=== PATIENT | male | born 1955 | race Caucasian/White ===

== ENCOUNTER 2017-04-13 11:11 | Day surgery (SDC) | payer OTHER ==
[~2017-04-13] VITALS: Ht 176.5 cm; Wt 91.7 kg
[~2017-04-13 11:11] MED LIST: ADV10050 INH; ALBU8.5H3; AMLO-147 PO; DOCU-144; NORCO PO; PRED20TA PO
[2017-04-13] MEDS ORDERED: IPRA4AER INHALATION (11:37)
[2017-04-13 11:48] VITALS: Ht 176.5 cm; Wt 91.7 kg
[2017-04-13 13:07] VITALS: BP 114/70; PULSE 72; RESP 18
[2017-04-13 14:50] VITALS: BP 116/64; PULSE 66; RESP 12
[2017-04-13] MEDS ORDERED: LIDOCAINE 2% (SDV) 5 ML INJ ONE (18:03)
[2017-04-13] MEDS ORDERED: PROPOFOL 40 ML ONE (18:03)
--- NOTE | 2017-04-15 09:46 | GILP ---
DATE OF PROCEDURE: 04/13/2017 PROCEDURE PERFORMED: Esophagogastroduodenoscopy with biopsies. INDICATION FOR PROCEDURE: This is a patient with history of cirrhosis of the liver; here for surveillance for esophageal varices. ANESTHESIA: Monitored anesthesia care by Anesthesiologist. TECHNIQUE: After informed consent, with the patient/relatives understanding the procedure, its indications, potential risks and complications, including but not limited to: allergic reaction, bleeding, perforation or infection, and after all pertinent questions were answered to the patients satisfaction, the patient/relatives signed witnessed informed consent. Following this, premedication was administered slowly IV push under careful cardiovascular and respiratory monitoring with pulse oximetry, automatic blood pressure and panel monitor. Once the sedative effect was achieved the patient was place in the left lateral decubitus, the panendoscope was introduced and advanced under visual control. Careful examination of the upper gastrointestinal tract, both on insertion as well as withdrawal of the instrument disclosed the following findings: ESOPHAGUS: Grade I/IV esophageal varices with no evidence of bleeding. No therapeutic intervention is deemed necessary. The distal esophagus shows erythema and edema in the mucosa of a moderate degree. STOMACH: Upon entrance to the stomach air was insufflated, the gastric scott distended normally. There is an area of edema in the mucosa of a moderate degree. Biopsies were obtained to rule out H. pylori infection. PYLORUS: The pylorus appears patent and within normal limits, with no evidence of gastric outlet obstruction. DUODENUM: The duodenal mucosa was carefully examined in the duodenal bulb as well as the second portion of the duodenum and appears unremarkable with no evidence of duodenitis, ulcer or neoplasm. The instrument was then withdrawn, the patient tolerated the procedure well and was transfer out of the endoscopy suite awake, and in good condition to continue recovery under observation. IMPRESSION: 1. Grade I/IV esophageal varices. No intervention required. 2. Distal esophagitis, moderate. 3. Gastritis, moderate, rule out H. pylori infection. Biopsies are obtained. RECOMMENDATIONS: The patient will be treated with PPIs. Pathology will review as soon as available. Further recommendation is pending his clinical course, as well as review of biopsies. Surveillance endoscopy in 6 months is recommended. Dictated By: Mary Toney MD /[email or web address] /Document#: [id number]
== END 2017-04-13 16:19 | disposition home or self-care (01) ==
LOC: GIL 11:11
PROVIDERS: ATTEND Internal Medicine Gastroenterology
DX: I85.00 Esophageal varices without bleeding (principal); K20.8 Other esophagitis; K29.60 Other gastritis without bleeding; J44.9 Chronic obstructive pulmonary disease, unspecified
CPT/HCPCS: 43239; 88305; 88312; Z7610

== ENCOUNTER 2017-12-21 11:30 | Day surgery (SDC) | END 2017-12-21 19:13 | disposition home or self-care (01) ==

== ENCOUNTER 2018-12-27 11:28 | Day surgery (SDC) | payer OTHER ==
[~2018-12-27] VITALS: Ht 172.7 cm; Wt 91.1 kg
[~2018-12-27 11:28] MED LIST changes: -ADV10050 INH; -ALBU8.5H3; +ALBU8.5H8; +IBUPROFEN; +IPRA4AER INHALATION
[2018-12-27 12:14] VITALS: Ht 172.7 cm; Wt 91.1 kg
[2018-12-27] MEDS ORDERED: omeprazole PO (12:31)
[2018-12-27 12:46] VITALS: BP 119/67; PULSE 70; RESP 20
--- NOTE | 2018-12-27 13:46 | PREAC ---
Date/Time of Note Date/Time of Note DATE: 12/27/18 TIME: 13:44 Anesthesia Eval and Record Evaluation Time Pre-Procedure Interview DATE: 12/27/18 TIME: 13:44 Age 63 Sex male NPO: 8 hrs Preoperative diagnosis Cirrhosis, HCV Planned procedure EGD Past Medical History Past Medical History: Includes Cardio: HTN, CAD Pulm: COPD, Asthma Hepatic: Cirrhosis Infection(s): Hep C Surgery & Anesthesia Issues No known issue Meds Anticoagulation: No Beta Bri within 24 hr: No Reason Beta Bri not given: Pt. not on B-Bri Reported Medications [omeprazole ] No Conflict Check, PO DAILY 12/27/18 Albuterol/Ipratropium* (Combivent Respimat*) 20-100 Mcg/Inh - 4 Gm Aer.w.adap, 1 PUFF INHALATION QID, #1 INHALER 04/13/17 Prednisone* (Prednisone*) 20 Mg Tab, 20 MG PO DAILY, TAB 05/14/15 Amlodipine Besylate* (Amlodipine Besylate*) 10 Mg Tablet, 10 MG PO DAILY, TAB 05/14/15 Albuterol Sulfate* (Proair HFA*) 8.5 Gm Hfa.aer.ad 07/13/10 Discontinued Reported Medications [Ibuprofen] No Conflict Check 12/21/17 [[place]] No Conflict Check, PO 05/14/15 Docusate Sodium* (Colace*) 100 Mg Capsule 07/13/10 Meds reviewed: Yes Allergies Coded Allergies: No Known Allergies (Verified Allergy, Mild, 12/27/18) Allergies Reviewed: Yes Labs/Studies Labs Reviewed: Reviewed by anesthesiologist test: N/A Studies: ECG (n/a), CXR (n/a) Pre-procedure Exam Last vitals Vital Signs Date Temp Pulse Resp B/P (MAP) Pulse Ox O2 O2 Flow FiO2 Time Delivery Rate 12/27/18 98.0 70 20 119/67 92 Room Air 12:46 (84) Airway: Adequate mouth opening, Adequate thyromental dist Mallampati: Mallampati II Teeth: Normal Lung: Normal Heart: Normal ASA Physical Status ASA physical status: 3 Emergency: None Planned Anesthetic General/MAC: MAC Planned Pain Management Parenteral pain med Pre-operative Attestations Prior to commencing anesthesia and surgery, the patient was re-evaluated, there was verification of: *The patient's identity *The results of appropriate recent lab work and preoperative vital signs *The above evaluation not changing prior to induction *Anesthetic plan, risk benefits, alternative and complications discussed with patient/family; questions answered; patient/family understands, accepts and wishes to proceed. DAMIR FELIZ MD Dec 27, 2018 13:46
[2018-12-27] MEDS ORDERED: PROPOFOL 20 ML ONE (15:01)
--- NOTE | 2018-12-27 15:02 | PAC ---
Date/Time of Note Date/Time of Note DATE: 12/27/18 TIME: 15:01 Post-Anesthesia Notes Post-Anesthesia Note Last documented vital signs Vital Signs Date Temp Pulse Resp B/P (MAP) Pulse Ox O2 O2 Flow FiO2 Time Delivery Rate 12/27/18 98.0 70 20 119/67 92 Room Air 15:00 (84) Activity: WNL Respiratory function: WNL Cardiovascular function: WNL Mental status: Baseline Pain reasonably controlled: Yes Hydration appropriate: Yes Nausea/Vomiting absent: Yes DAMIR FELIZ MD Dec 27, 2018 15:02
[2018-12-27 15:28] VITALS: BP 132/63; PULSE 76; RESP 16
== END 2018-12-27 16:00 | disposition home or self-care (01) ==
LOC: GIL 11:28
PROVIDERS: ATTEND Internal Medicine Gastroenterology
DX: I85.00 Esophageal varices without bleeding (principal); I10 Essential (primary) hypertension; I25.10 Atherosclerotic heart disease of native coronary artery without angina pectoris; J44.9 Chronic obstructive pulmonary disease, unspecified
CPT/HCPCS: 43239; 88305; Z7610; 88312